=== PATIENT | male | born 1980 | race Caucasian/White ===

== ENCOUNTER 2018-07-04 08:44 | Emergency (ER) | payer OTHER ==
[~2018-07-04] VITALS: Ht 175.3 cm; Wt 103.4 kg
[2018-07-04] MEDS ORDERED: ONDANSETRON HCL INJ 2MG/ML 2ML 2 MG/ML VIAL IV STA ×2 (09:19→10:54)
[2018-07-04] MEDS ORDERED: FAMOTIDINE 20 MG/2 ML VIAL IV STA (09:19)
[2018-07-04] MEDS ORDERED: KETOROLAC TROMETHAMINE 30 MG/ML VIAL IV STA (09:19)
[2018-07-04] MEDS ORDERED: PROMETHAZINE HC25 M1 PO (09:20)
[2018-07-04] MEDS ORDERED: TRANSDERM-SCOP1 EACH TD (09:20)
[2018-07-04] MEDS ORDERED: ZOFRAN4 MG PO (09:20)
[2018-07-04] MEDS ORDERED: GABAPENTIN300 MG PO (09:20)
[2018-07-04] MEDS ORDERED: NUCYNTA50 MG PO (09:20)
[2018-07-04] MEDS ORDERED: KLONOPIN1 MG (09:25)
[2018-07-04] MEDS ORDERED: SODIUM CHLORIDE 0.9% 1000ML 1,000 ML IV ONE (09:30)
--- NOTE | 2018-07-04 09:57 | Diagnostic Imaging Report ---
EXAMINATION: CT of the abdomen and pelvis with contrast. TECHNIQUE: Spiral CT images of the abdomen and pelvis were performed from the lung bases to the lesser trochanters after the intravenous administration of 100 cc Isovue-370. Coronal and sagittal reformatted images were obtained. COMPARISON: None. CLINICAL HISTORY:Left lower quadrant abdominal pain DISCUSSION: ABDOMEN/PELVIS: LOWER THORAX:Unremarkable. HEPATOBILIARY: No focal hepatic lesions. No intra-or extrahepatic biliary ductal dilation. The gallbladder has been removed with metallic clips in the gallbladder fossa. SPLEEN: Calcified granuloma in the lower pole. No splenomegaly or other focal splenic lesion. PANCREAS: No focal masses or ductal dilatation. ADRENALS: No adrenal nodules. KIDNEYS/URETERS: No hydronephrosis, stones, or solid mass lesions. PELVIC ORGANS/BLADDER: The bladder is normal. PERITONEUM/RETROPERITONEUM: No free air or fluid. LYMPH NODES: No pelvic sidewall, retroperitoneal, or mesenteric lymphadenopathy. VESSELS: Abdominal aorta, major branch vessels, and iliac arterial systems are well-visualized and patent. Portal vein, splenic vein, and central superior mesenteric vein are patent. Single right renal artery and 2 left renal arteries are patent. GI TRACT: Postsurgical changes of partial colectomy with anastomosis at the rectosigmoid junction. Radiopaque suture line along a loop of small bowel in the right lower quadrant. Appendix is normal. Large bowel shows no distention, wall thickening, or adjacent inflammatory change.. There is no small bowel dilatation to suggest obstruction. BONES AND SOFT TISSUE: No osseous destructive lesions. Broad-based ventral abdominal wall hernia, with neck measuring approximately 10 cm transversely. The hernia contains several loops of small bowel without inflammatory change. Nonspecific subcutaneous fat stranding along the right lower quadrant which may be postsurgical. IMPRESSION: No acute intra-abdominal or pelvic CT abnormalities. Postsurgical changes of the small and large bowel, with a broad-based ventral abdominal wall hernia and no evidence of bowel obstruction. Signed by: Dr. Aashish Cavazos M.D. on 07/04/2018 9:54 AM
[2018-07-04] MEDS ORDERED: IOPAMIDOL 300MG/ML 100 ML INFUS..BTL IV ONE (10:00)
--- NOTE | 2018-07-04 10:34 | NUR ---
PT REFUSED DIGITAL GUIAC BY ; PT ASKED FOR BEDPAN TO COLLECT SAMPLE AND GIVE TO BE TESTED. PT GIVEN SUPPLIES AND TO RESTROOM FOR SAMPLE
--- NOTE | 2018-07-04 10:53 | NUR ---
GUIAC NEGATIVE; PT WANTED MORE ZOFRAN PRIOR TO DC; OK PER
== END 2018-07-04 11:01 | disposition home or self-care (01) ==
LOC: FSED 08:44
DX: R10.32 Left lower quadrant pain (principal); R19.7 Diarrhea, unspecified
CPT/HCPCS: 74177; 80053; 81003; 85025; 99284; J1885; J2405; J7030; Q9967